=== PATIENT | female | born 1960 | race Caucasian/White ===

== ENCOUNTER 2021-04-25 21:56 | Emergency (ER) | payer MEDICARE, MEDICAID, SELFPAY ==
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
[2021-04-25 22:43] VITALS: BP 137/75; PULSE 74; RESP 17; TEMP 36.9; O2SAT 96; BMI 25.2
--- NOTE | 2021-04-25 22:57 | ED.FALL ---
HPI - Fall General Chief Complaint: Fall Stated Complaint: wrist inj Time Seen by Provider: 04/25/21 22:50 Source: patient Mode of arrival: ambulatory Limitations: no limitations History of Present Illness HPI Narrative: 61-year-old female presenting to the ED with complaints of a mechanical fall that occurred prior to arrival while she was at home she reports that she did not tie her shoe lace correctly and she ended up tripping on her shoe lace landing on her left arm/rib cage/head and since then she has been having pain to the left forehead, neck, left ribcage and left wrist. She also reports that she feels like she sees flashes of white lights to the left lateral aspect of the eye since the fall. She denies loss of consciousness or prolonged down time. She denies being on any blood thinners. She denies any symptoms prior to the fall. She only reports pain and changes of vision after the fall to the left eye otherwise no other symptoms. She denies any actual eye pain, and any other symptoms complaints or concerns at this time. 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) Fall from: standing Fall witnessed: no Place fall occurred: home Loss of consciousness: none Prolonged down time: no Symptoms prior to fall: none Context: tripped/slipped Location of injury: head, neck and chest (Left lateral anterior rib cage) Location of injury - extremities: left: arm (Wrist) Severity: severe Severity scale (1-10): >10 Quality: aching Associated symptoms (after fall): other (Floaters to the lateral aspect of the left eye, pain to the left forehead, pain to the neck, pain to the left wrist, pain to the left rib cage) Related Data Previous Rx's Medication Instructions Recorded cyclobenzaprine 10 mg tablet 10 mg PO Q8H PRN #14 tab 04/25/21 Allergies Allergy/AdvReac Type Severity Reaction Status Date / Time No Known Allergies Allergy Verified 04/25/21 22:50 Review of Systems Review of Systems: Constitutional : No Fever, No Chills ENT/Mouth : No Ear Pain, No Hoarseness, No sore throat Eyes: + positive floaters sensation to left lateral eye, No Eye Pain, No Swelling, No Redness, No Foreign Body Cardiovascular : No Chest Pain, No SOB Respiratory : No Cough, No Dyspnea Gastrointestinal : No Nausea, No Vomiting, No Diarrhea, No abdominal Pain Genitourinary : No Dysuria, No Hematuria Musculoskeletal : + left wrist joint pain, positive left anterior/lateral rib cage pain, No Myalgias, No Joint Swelling Skin : No Skin lacerations, No rash Neuro : + Head injury, No Weakness, No Numbness, No Paresthesias, No Loss of Consciousness, No Dizziness, No Headache Psych : No Anxiety/Panic, No Depression Heme/Lymph: no easy bruising, no Lymphadenopathy Endocrine : No Polyuria, No Polydipsia Yes all other systems are reviewed and are negative [facility] Past Medical History Attestation statement: The following information was validated with the patient. Medical History Carpal tunnel syndrome Cervical vertebral fusion Tarsal tunnel syndrome Surgical History H/O: hysterectomy History of lumbar surgery Social History Social History Advance Directives: No Patient : No Physical Exam Vital Signs: Vital Signs: Last Vital Signs Temp 98.4 F 04/25/21 22:43 Pulse 74 04/25/21 22:43 Resp 17 04/25/21 22:43 BP 137/75 04/25/21 22:43 Pulse Ox 96 04/25/21 22:43 Body Mass Index 25.2 vital signs have been reviewed as normal and appeared to be correct. Blood pressure normal. Heart rate normal. Respiration rate normal. Temperature normal. Oxygen saturation normal. Appearance: Alert. Oriented X3. No acute distress. Head: Patient with mild soft tissue swelling/ecchymosis to left forehead no obvious deformities or depressions noted the rest of the external exam is within normal limits. No [place] signs noted. No raccoon eyes noted Eyes: PERRLA. EOMI. Conjunctiva are normal. Cornea are normal. Funduscopic exam within normal limits. Sclera normal. Eyelids normal. No papilledema noted. Anterior chamber normal. No photophobia noted. Visual acuity bilateral 20/25 with glasses. ENT: EAC normal. TM's Normal. Pharynx normal. Uvula midline. Moist mucous membranes. No trismus noted. No drooling noted. No muffled voice noted. Neck: Normal inspection. Neck supple. FROM. No adenopathy. Thyroid Normal. No meningeal signs. No neck mass noted. CVS: Normal heart rate and rhythm. Heart sound normal. Pulses normal throughout. No murmurs/rales/gallops. Respiratory: No respiratory distress. Painless inspiration. Breath sounds normal. No wheezes/rales/rhonchi noted. Chest tender to palpation to left anterior lower/lateral chest wall. No obvious deformities or step-offs noted. No crepitus is noted. No visible injury noted. No accessory muscle usage noted or decreased air movement noted. Abdomen: Soft and nontender. Bowel sounds normal in all 4 quadrants. No distention noted. No organomegaly noted. No visible injury noted. Back: Full range of motion noted. No rashes/lesion/induration/fluctuance or signs of infection noted. Skin: Skin warm and dry. Normal skin color. Normal skin turgor. No rashes/lesions/lacerations noted. Extremities: Patient with tenderness palpation to left wrist with limited range of motion for flexion/extension of the left wrist no obvious deformities or ligamentous/tendon injury. Otherwise all other Extremities exhibit normal range of motion and nontender. Neuro: Oriented X 3. No motor deficit. No sensory deficit. Reflexes normal. Normal steady gait. No focal neuro deficits noted. Vascular: + radial pulses Normal cap refill. No cyanosis noted to upper extremity nails Course Course Course Narrative: 22:50pm - 61-year-old female presenting to the ED with complaints of a mechanical fall that occurred prior to arrival while she was at home she reports that she did not tie her shoe lace correctly and she ended up tripping on her shoe lace landing on her left arm/rib cage/head and since then she has been having pain to the left forehead, neck, left ribcage and left wrist. She also reports that she feels like she sees flashes of white lights to the left lateral aspect of the eye since the fall. She denies loss of consciousness or prolonged down time. She denies being on any blood thinners. She denies any symptoms prior to the fall. She only reports pain and changes of vision after the fall to the left eye otherwise no other symptoms. She denies any actual eye pain, and any other symptoms complaints or concerns at this time. On exam I do not visualize any abnormalities on funduscopic exam. See nurse's note for visual acuity. Patient noted to have a fracture to the left wrist will place in a splint. We will also obtain a CT scan of brain/cervical spine and left rib x-rays then re-evaluate. Reevaluation(s) Reevaluation #1: - CT scan of brain/cervical spine negative for any acute processes only chronic changes. - Ribs Xray negative for any acute processes. - Dr. Erazo and I performed a bedside left eye ultrasound and it was normal no floaters or detachments noted on our exam and patient visual acuity is WNL and normal fundoscopic exam. - Pt is now s/p splint placement. 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 Pt understands and agrees with plan. Time: 23:38 Procedures Orthopedic Splinting/Casting Injury #1: Side: left Upper Extremity Injury Location: wrist Upper Extremity Immobilizer: sugar tong splint MDM - Fall Medical Records Attestation: I reviewed the patient's medical records. Imaging Data Left wrist x-ray: Attestation: I personally reviewed and interpreted this imaging study as follows: Radiologist's impression: FINDINGS: There is a distal radial fracture with mild impaction and intra-articular extension. No other fractures. Carpal rows are maintained. The scapholunate interval is preserved. There is mild demineralization with moderate degenerative changes at the radiocarpal joint, triscaphe space and first carpometacarpal joint manifested by space narrowing and subcortical sclerosis. No unexpected radiopaque foreign bodies.? XR/XR wrist LT min 3V IMPRESSION: Distal radial fracture with mild impaction and intra-articular extension. CT scan of brain/cervical spine without contrast : Attestation: I personally reviewed and interpreted this imaging study as follows: Radiologist's impression: FINDINGS: HEAD: No intracranial mass, hemorrhage, or midline shift is visualized. The ventricles and sulci are proportional. No extra-axial collections are identified. There is prominent extra-axial CSF space posterior to left cerebellar hemisphere likely congenital, versus subarachnoid cyst. The paranasal sinuses and mastoid air cells are well aerated. CERVICAL SPINE: There is no evidence of acute cervical spine fracture. Vertebral bodies remain normal in height. Cervical vertebrae have normal alignment. Status post fusion with anterior orthopedic plate and screw C4-C6. There is bony fusion of the C6-C7 vertebral bodies. There is mild facet joint arthrosis most notable on the right at C3-C4. No pre- or paravertebral soft tissue abnormality is identified. Limited assessment of the lung apices is unremarkable. CT/CT head/brain wo con IMPRESSION: 1. No acute intracranial pathology. 2. No CT evidence of acute cervical spine fracture or traumatic subluxation left ribs and PA chest : Attestation: I personally reviewed and interpreted this imaging study as follows: Radiologist's impression: FINDINGS: No displaced rib fractures seen. Lung volumes are symmetric. Biapical scarring is noted without additional consolidation. No evidence of pneumothorax, pleural effusion, or pulmonary edema. The cardiomediastinal contour is unremarkable. XR/XR ribs LT min 3V w CXR1V IMPRESSION: No rib fracture identified. Discharge Plan Discharge Clinical Impression: Fall, Head injury, Cervical strain, Distal radius fracture, left, Concussion, Visual floaters, Muscle strain of chest wall Patient Disposition: Home, Self-Care Instructions: Cervical Strain (ED), Muscle Strain (ED), Wrist Fracture in Adults (ED), Fall Prevention for Older Adults (ED), Head Injury (ED), Splint Care (ED), Visual Floaters (ED), Concussion (ED) Prescriptions: New cyclobenzaprine 10 mg tablet 10 mg PO Q8H PRN (Reason: Muscle spasm) Qty: 14 RF: 0 Referrals: Shawn Cook [Physician] - 04/26/21 (call tomorrow to make an appointment ) Jose Chamorro DO, MD [Primary Care Provider] - 2 days Ashley Camarillo MD [Physician] - 04/26/21 (Call tomorrow to make follow-up appointment within a week) Print Language: Turkmen
== END 2021-04-25 23:00 | disposition home or self-care (01) ==
PROVIDERS: Emergency Provider Emergency Medicine Emergency Medical Services; PCP Internal Medicine
DX: S06.0X0A Concussion without loss of consciousness, initial encounter (principal); S52.572A Other intraarticular fracture of lower end of left radius, initial encounter for closed fracture; S16.1XXA Strain of muscle, fascia and tendon at neck level, initial encounter; S29.011A Strain of muscle and tendon of front wall of thorax, initial encounter; W01.0XXA Fall on same level from slipping, tripping and stumbling without subsequent striking against object, initial encounter; Y93.89 Activity, other specified; Y92.009 Unspecified place in unspecified non-institutional (private) residence as the place of occurrence of the external cause; Y99.9 Unspecified external cause status
CPT/HCPCS: 29125; 70450; 71101; 72125; 73110; 99284

== ENCOUNTER 2021-05-03 07:30 | Outpatient (REF) | payer MEDICARE, MEDICAID, SELFPAY ==
--- NOTE | ~2021-05-03 | XR_ITS ---
EXAMINATION: XR WRIST, LEFT CLINICAL INFORMATION: Pain. COMPARISON: None TECHNIQUE: PA, lateral, and oblique views of the left wrist. FINDINGS: There is degeneration at the base of the thumb at the articulation with the greater multangular. Mild degeneration at the articulation of the navicular with the greater multangular. There is no evidence for an acute fracture or dislocation. No acute bony erosion. XR/XR wrist LT min 3V IMPRESSION: Degenerative changes, as described. No acute bony finding.
== END 2021-05-03 07:31 | disposition home or self-care (01) ==
LOC: HO.HOSX 07:30
PROVIDERS: Visit Provider Physician Assistant
DX: S52.502A Unspecified fracture of the lower end of left radius, initial encounter for closed fracture (principal)
CPT/HCPCS: 73110; 99202

== ENCOUNTER 2021-05-09 08:56 | Outpatient (REF) | payer MEDICARE, MEDICAID, SELFPAY ==
--- NOTE | ~2021-05-09 | XR_ITS ---
EXAMINATION: XR WRIST, LEFT CLINICAL INFORMATION: Left wrist pain COMPARISON: 04/25/2021 and 05/03/2021 TECHNIQUE: PA, lateral, and oblique views of the left wrist. XR/XR wrist LT min 3V FINDINGS AND IMPRESSION: Again noted is a nondisplaced fracture involving the radial styloid with extension to the radioscaphoid joint. No significant articular surface depression. Carpal bones remain intact. Small osteophytes are noted at the mildly degenerated first carpometacarpal joint. The pronator quadratus fat stripe is suboptimally defined, likely from mild soft tissue swelling from the recent injury. No new findings in the wrist compared 05/03/2021.
== END 2021-05-09 08:57 | disposition home or self-care (01) ==
LOC: HO.HOSX 08:56
PROVIDERS: Visit Provider Orthopaedic Surgery
DX: S52.502A Unspecified fracture of the lower end of left radius, initial encounter for closed fracture (principal)
CPT/HCPCS: 73110; 99212

== ENCOUNTER 2021-05-23 09:24 | Outpatient (REF) | payer MEDICARE, MEDICAID, SELFPAY ==
--- NOTE | ~2021-05-23 | XR_ITS ---
EXAMINATION: XR WRIST, LEFT CLINICAL INFORMATION: Left wrist pain COMPARISON: 05/09/2021 TECHNIQUE: PA, lateral, and oblique views of the left wrist. FINDINGS: The distal radius fracture is nearly completely healed with a small residual cleft along the articular surface. 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 XR/XR wrist LT min 3V IMPRESSION: Near complete healing of the distal radius fracture. Stable alignment.
== END 2021-05-23 09:25 | disposition home or self-care (01) ==
LOC: HO.HOSX 09:24
PROVIDERS: Visit Provider Orthopaedic Surgery
DX: S52.502D Unspecified fracture of the lower end of left radius, subsequent encounter for closed fracture with routine healing (principal)
CPT/HCPCS: 29075; 73110; 99212